=== PATIENT | male | born 1965 ===

== ENCOUNTER → 2016-11-08 | Outpatient (CLI) | payer OTHER ==
[~2016-11-08] MED LIST: ALBUMIN 25% 50 ML SOLN IV ONE
== END ==
LOC: FIMAGING 13:53
PROVIDERS: ATTEND Internal Medicine Hospice and Palliative Medicine
PROC: 0W9G3ZX Drainage of Peritoneal Cavity, Percutaneous Approach, Diagnostic (ICD-10-PCS; principal; 2016-11-08)
DX: R18.8 Other ascites (principal)
CPT/HCPCS: P9047